=== PATIENT | male | born 1970 | race American Indian/Alaskan Native ===

== ENCOUNTER 2018-01-25 12:42 | Emergency (ER) | payer MEDICARE ==
[2018-01-25 13:19] LABS: Basophils % (Auto) 0.3 % (0.0-1.8); Eosinophils # (Auto) 0.3 K/mm3 (0.0-0.4); Eosinophils % (Auto) 5.7 % (0.0-4.3); Hematocrit 36.6 % (35.5-45.6); Hemoglobin 12.1 gm/dl (11.8-15.2); Lymphocytes # (Auto) 2.2 K/mm3 (1.2-5.4); Lymphocytes % (Auto) 40.8 % (13.4-35.0); Mean Corpuscular HGB Conc 33 % (32-34); Mean Corpuscular Hemoglobin 30 pg (28-32); Mean Corpuscular Volume 92 fl (84-94); Monocytes # (Auto) 0.6 K/mm3 (0.0-0.8); Monocytes % (Auto) 11.5 % (0.0-7.3); Platelet Count 254 K/mm3 (140-440); Red Blood Count 3.99 M/mm3 (3.65-5.03); Red Cell Distribution Width 15.7 % (13.2-15.2)
[2018-01-25 13:40] LABS: Alanine Aminotransferase 41 units/L (7-56); Albumin 3.9 g/dL (3.9-5); BUN/Creatinine Ratio 9; Blood Urea Nitrogen 9 mg/dL (9-20); Calcium 8.9 mg/dL (8.4-10.2); Hemolysis Index 3
[2018-01-26] MEDS ORDERED: ZOFRAN IM ONE (01:32)
[2018-01-26] MEDS ORDERED: MORPHINE IM ONE (01:32)
--- NOTE | 2018-01-26 01:40 | Emergency Department Report ---
HPI - General Chief Complaint: Extremity Injury, Lower Time Seen by Provider: 01/26/18 01:17 - HPI HPI: Room 1 The patient is a 47-year-old male presenting with a chief complaint of bilateral lower extremity swelling and pain. The patient states for 1 week he' s had swelling in both feet in addition to pain in the bones. The patient states a proximal 8 months ago the first time he has swelling in both legs and he was given a prescription for Lasix to use as needed for the swelling. The patient states 1 week ago swelling again began swelling was taking Lasix but has not helped his pain. Patient denies any recent trauma or fever. The patient carries a diagnosis of bipolar disorder and states she's been able to take his psychiatric medications because they were in his car when the police took it. The patient states he had Lasix at home so he was able to take that. The patient gives his pain score of 12/10 Location: Bilateral ankles Duration: 1 week Quality: Pain Severity: 12/10 Modifying factors: [see above] Context: [see above] Mode of transportation: [not driving] ED Past Medical Hx - Past Medical History Hx Hypertension: Yes Hx Psychiatric Treatment: Yes (bipolar disorder) - Surgical History Past Surgical History?: No - Family History Family history: no significant - Social History Smoking Status: Former Smoker (none 2 years) Substance Use Type: None (denies illicit drug use) - Medications Home Medications: Home Medications Medication Instructions Recorded Confirmed Last Taken Type HYDROcodone/APAP 5-325 [Andreas 1 - 2 each PO Q6HR PRN #14 tablet 01/26/18 Unknown Rx 5/325] buPROPion XL [Wellbutrin Xl] 150 mg PO QAM #30 tab.er.24h 01/26/18 Unknown Rx risperiDONE [RisperiDONE] 1 mg PO QDAY #30 tab 01/26/18 Unknown Rx ED Review of Systems ROS: Stated complaint: ANKLE SWELLING Other details as noted in HPI Constitutional: denies: fever Musculoskeletal: arthralgia, myalgia Physical Exam - Physical Exam Vital Signs: Vital Signs 01/25/18 12:46 Temperature 97.4 F L Pulse Rate 75 Respiratory 18 Rate Blood Pressure 167/101 O2 Sat by Pulse 95 Oximetry Physical Exam: GENERAL: The patient is well-developed well-nourished male lying on stretcher not appearing to be in acute distress. [] HEENT: Normocephalic. Atraumatic. Extraocular motions are intact. Patient has moist mucous membranes. NECK: Supple. Trachea midline CHEST/LUNGS: Clear to auscultation. There is no respiratory distress noted. HEART/CARDIOVASCULAR: Regular. There is no tachycardia. There is no gallop rub or murmur. ABDOMEN: Abdomen is soft, nontender. Patient has normal bowel sounds. There is no abdominal distention. SKIN: There is no rash. There is 1+ bilateral lower extremity pitting edema up to mid [place]. There is no diaphoresis. NEURO: The patient is awake, alert, and oriented. The patient is cooperative. The patient has normal speech MUSCULOSKELETAL: There is no evidence of acute injury. ED Course Vital Signs 01/25/18 12:46 Temperature 97.4 F L Pulse Rate 75 Respiratory 18 Rate Blood Pressure 167/101 O2 Sat by Pulse 95 Oximetry ED Medical Decision Making - Lab Data Result diagrams: 01/25/18 13:01 01/25/18 13:01 Laboratory Tests 01/25/18 01/25/18 13:01 13:01 WBC 5.4 RBC 3.99 Hgb 12.1 Hct 36.6 MCV 92 MCH 30 MCHC 33 RDW 15.7 H Plt Count 254 Lymph % (Auto) 40.8 H [place] % (Auto) 11.5 H Eos % (Auto) 5.7 H Baso % (Auto) 0.3 Lymph # 2.2 [place] # 0.6 Eos # 0.3 Baso # 0.0 Seg Neutrophils % 41.7 Seg Neutrophils # 2.2 Sodium 141 Potassium 3.9 Chloride 97.0 L Carbon Dioxide 29 Anion Gap 19 BUN 9 Creatinine 1.0 Estimated GFR > 60 BUN/Creatinine Ratio 9 Glucose 139 H Calcium 8.9 Total Bilirubin 0.30 AST 22 ALT 41 Alkaline Phosphatase 95 Troponin T < 0.010 NT-Pro-B Natriuret Pep 239.0 Total Protein 7.3 Albumin 3.9 Albumin/Globulin Ratio 1.1 - EKG Data -: EKG Interpreted by Me EKG shows normal: sinus rhythm Rate: normal - EKG Data When compared to previous EKG there are: previous EKG unavailable Interpretation: other (no ischemic changes seen) - Medical Decision Making Patient was counseled on elevating lower extremities when at rest and using ROB hoses. Patient states he has an upcoming follow with vascular surgery for further evaluation of his peripheral edema. The patient states he still has at least 10 Lasix at home - Differential Diagnosis peripheral edema, CHF, renal failure, liver failure Critical care attestation.: If time is entered above; I have spent that time in minutes in the direct care of this critically ill patient, excluding procedure time. ED Disposition Clinical Impression: Peripheral edema, Bilateral ankle pain Disposition: TO HOME OR SELFCARE Is pt being admited?: No Does the pt Need Aspirin: No Condition: Stable Instructions: Leg Edema (ED), Arthralgia (ED) Additional Instructions: Return to the emergency department immediately should you develop worsening symptoms, fever, inability to tolerate food or liquid or any other concerns. Prescriptions: buPROPion XL [Wellbutrin Xl] 150 mg PO QAM #30 tab.er.24h HYDROcodone/APAP 5-325 [Andreas 5/325] 1 - 2 each PO Q6HR PRN #14 tablet PRN Reason: Pain risperiDONE [RisperiDONE] 1 mg PO QDAY #30 tab Referrals: [facility] [Other] - 3-5 Days Time of Disposition: 01:44
[2018-01-26 02:08] VITALS: BP 149/67
== END 2018-01-26 02:18 | disposition home or self-care (01) ==
LOC: ED 12:42
DX: R60.0 Localized edema (principal); M25.571 Pain in right ankle and joints of right foot; M25.572 Pain in left ankle and joints of left foot; I10 Essential (primary) hypertension; F31.9 Bipolar disorder, unspecified; Z87.891 Personal history of nicotine dependence
CPT/HCPCS: 36415; 80053; 83880; 84484; 85025; 93005; 93010; 96372; 99283; J2270; J2405